=== PATIENT | female | born 1935 | race Caucasian/White ===

== ENCOUNTER 2020-10-24 18:10 | Inpatient (IN) | payer MEDICARE ==
[~2020-10-24] VITALS: Ht 160 cm; Wt 63.6 kg
--- NOTE | 2020-10-24 18:37 | NUR ---
CERTIFIED PROSTHETIST/ORTHOTIST: DR LOOMIS SAW EKG AT 1824. NO CODE CARDIAC PER DR LOOMIS.
--- NOTE | 2020-10-24 18:53 | NUR ---
MD AT BEDSIDE TO ASSESS. PT IN BED WITH NO SIGNS OR SYMPTOMS OF ACUTE DISTRESS NOTED RESPIRATIONS EVEN AND UNLABORED. PT ON WAGON WINDER, SATTING WELL ON ROOM AIR, AT BEDSIDE.
[2020-10-24] MEDS ORDERED: SODIUM CHLORIDE FLUSH 10ML SYR IVF ONE (19:00)
--- NOTE | 2020-10-24 19:09 | NUR ---
Pt to CT. No changes.
[2020-10-24 19:16] LABS: BASOPHILS % (AUTO) 1 % (0-1); EOSINOPHILS % (AUTO) 1 % (1-7); LYMPHOCYTES % (AUTO) 12 % (22-44); MD NO; MEAN CORPUSCULAR HEMOGLOBIN 30.3 pg (27.0-34.8); MEAN CORPUSCULAR HGB CONC 32.7 g/dL (32.4-35.8); MEAN PLATELET VOLUME 8.6 fL (7.4-10.4); MONOCYTES % (AUTO) 8 % (2-9); NEUTROPHILS % (AUTO) 78 % (42-75); PLATELET COUNT 273 x10^3/uL (130-400); RED BLOOD COUNT 4.04 x10^6/uL (3.82-5.3); RED CELL DISTRIBUTION WIDTH 14.1 % (9.6-15.2)
[2020-10-24 19:20] LABS: MICROSCOPIC NOT IND
[2020-10-24 19:26] LABS: ALANINE AMINOTRANSFERASE 28 U/L (12-78); ALBUMIN 3.4 g/dL (3.4-5.0); ANION GAP 6 mmol/L (5-15); CALCIUM 9.4 mg/dL (8.5-10.1); CHLORIDE 118 mmol/L (98-107); CREATININE 2.21 mg/dL (0.55-1.02)
--- NOTE | 2020-10-24 19:30 | NUR ---
pt back from ct no signs or symptoms of acute distress noted respirations even and unlabored. pt on bar porter, satting well on room air with bed rails up bilaterally and at bedside
[2020-10-24 19:31] LABS: ALKALINE PHOSPHATASE 81 U/L (45-117); BILIRUBIN,TOTAL 0.3 mg/dL (0.2-1.0); TROPONIN I < 0.015 ng/mL (0.000-0.045)
[2020-10-24] MEDS ORDERED: ONDANSETRON 2MG/ML, 2ML ONE (19:41)
[2020-10-24] MEDS ORDERED: DEXTROSE 50%, 50ML SYRINGE ONE ×2 (19:48→21:29)
[2020-10-24] MEDS ORDERED: INSULIN SINGLE DOSE, ER ONE (19:49)
[2020-10-24] MEDS ORDERED: CALCIUM CHLORIDE 10%, 10ML SYR ONE (19:52)
[2020-10-24] MEDS ORDERED: INSULIN REGULAR 100 UNITS/ML, 3ML VIAL IVPush ONE (20:00)
[2020-10-24] MEDS ORDERED: ONDANSETRON 2MG/ML, 2ML IVPush ONE (20:00)
[2020-10-24] MEDS ORDERED: SODIUM BICARBONATE 8.4% 150 MEQ in DEXTROSE 5% 1,000 ML IV SCH (20:00)
[2020-10-24] MEDS ORDERED: DEXTROSE 50%, 50ML SYRINGE IVPush ONE ×2 (20:00→22:00)
[2020-10-24] MEDS ORDERED: CALCIUM CHLORIDE 10%, 10ML SYR IVPush ONE (20:00)
[2020-10-24] MEDS ORDERED: SODIUM BICARB 8.4%, 50ML SYRINGE IVPush ONE (20:00)
[2020-10-24] MEDS ORDERED: SODIUM BICARB 8.4%, 50ML SYRINGE ONE (20:09)
[2020-10-24] MEDS ORDERED: SODIUM CHLORIDE FLUSH 10ML SYR IVF PRN (20:30)
--- NOTE | 2020-10-24 20:39 | NUR ---
pt in bed with no signs or symptoms of acute distress noted respirations even and unlabored pt tearful but denies pain, states that shes scared. pt requesting to use bathroom, rn in room to put pt up to bedpan. pt noted to void clear urine, cleaned and returned to position of comfort. pt continues on residential monitor, satting well on room air, with bed rails up bilaterally and call light in hand. at bedside. pt and aware and agreeable with plan of care.
[2020-10-24] MEDS ORDERED: APIX2.5T PO (20:54)
[2020-10-24] MEDS ORDERED: EVOL140P3 SQ (20:54)
[2020-10-24] MEDS ORDERED: LEVO150C4 PO (20:54)
[2020-10-24] MEDS ORDERED: OLME40TA12 PO (20:54)
[2020-10-24] MEDS ORDERED: CELE100C PO (20:54)
[2020-10-24] MEDS ORDERED: NITR50CA11 PO (20:54)
[2020-10-24] MEDS ORDERED: FEBU40TA PO (20:54)
[2020-10-24] MEDS ORDERED: BUDE3CAP2 IH (20:59)
[2020-10-24] MEDS ORDERED: OXYC1TAB14 PO (20:59)
--- NOTE | 2020-10-24 21:00 | NUR ---
hospitalist at bedside to assess. med list provided by pt, updated by this rn as much as possible. with list. pt in bed with no signs or symptoms of acute distress noted, ivf infusing well at left ac, pt on flexible nanny with bed rails up bilaterally and call light within reach.
[2020-10-24] MEDS ORDERED: SODIUM ZIRCONIUM CYCLOSILICATE 5 GM PO ONE (21:30)
[2020-10-24] MEDS ORDERED: LABETALOL 5MG/ML, 20ML IVPush PRN (21:30)
[2020-10-24] MEDS: SODIUM BICARBONATE 8.4% 150 MEQ in DEXTROSE 5% 1,000 ML IV SCH (21:30)
[2020-10-24] MEDS ORDERED: LIDODERM 5% PATCH TD PRN (21:30)
[2020-10-24] MEDS ORDERED: PROMETHAZINE 25 MG/ML, 1ML IM PRN (21:30)
--- NOTE | 2020-10-24 21:37 | NUR ---
rn in room x2 to check fsbs, result of 46. hospitalist aware, ed physician aware, pt given some po orange juice and new order noted for amp of d50. medication given as ordered. pt in bed with no signs or symptoms of acute dsitress noted respirations even and unlabored. pt on court recording monitor with ivf infusing well at left ac.
[2020-10-24] MEDS: APIXABAN 2.5 MG TABLET PO SCH ×2 (21:55→22:12)
--- NOTE | 2020-10-24 22:19 | NUR ---
pt and state pt already took her pm elequis, medication not given but charted. pt in bed with meal tray at bedside, on monitor tech with call light in hand. bed rail up on left for tray on right, pt with no signs or symptoms of acute distress noted, ivf infusing well at left ac.
[2020-10-24 22:34] LABS: FREE T4 (FREE THYROXINE) 1.76 ng/dL (0.76-1.46)
--- NOTE | 2020-10-24 23:15 | NUR ---
pt noted to have frequent request for toileting to void, pt provided pure wick. pt in bed with no signs or symptoms of acute distress noted repsirations even and unlabored. pt on desk monitor with ivf infusing well at left ac, bed rails up bilaterally and call light in hand
[2020-10-25 00:25] VITALS: BP 132/44
[2020-10-25 00:28] VITALS: BP 132/44
[2020-10-25] MEDS: ACETAMINOPHEN 325 MG TABLET PO PRN ×3 (03:57→23:55)
[2020-10-25 04:44] LABS: BASOPHILS % (AUTO) 1 % (0-1); EOSINOPHILS % (AUTO) 5 % (1-7); LYMPHOCYTES % (AUTO) 27 % (22-44); MEAN CORPUSCULAR HEMOGLOBIN 30.3 pg (27.0-34.8); MEAN CORPUSCULAR HGB CONC 33.8 g/dL (32.4-35.8); MEAN PLATELET VOLUME 8.3 fL (7.4-10.4); MONOCYTES % (AUTO) 12 % (2-9); NEUTROPHILS % (AUTO) 55 % (42-75); PLATELET COUNT 237 x10^3/uL (130-400); RED BLOOD COUNT 3.58 x10^6/uL (3.82-5.3); RED CELL DISTRIBUTION WIDTH 14.1 % (9.6-15.2)
[2020-10-25 04:45] LABS: ANION GAP 5 mmol/L (5-15); CALCIUM 9.1 mg/dL (8.5-10.1); CHLORIDE 116 mmol/L (98-107); CREATININE 1.91 mg/dL (0.55-1.02)
[2020-10-25 04:48] LABS: MD NO
[2020-10-25] MEDS: SODIUM BICARBONATE 8.4% 150 MEQ in DEXTROSE 5% 1,000 ML IV SCH ×2 (05:04→16:13)
[2020-10-25] MEDS: HYDROcodone/APAP 5/325 TABLET PO PRN ×2 (06:37→16:16)
[2020-10-25] MEDS: LEVOTHYROXINE 150 MCG TABLET PO SCH (09:02)
[2020-10-25] MEDS: APIXABAN 2.5 MG TABLET PO SCH ×2 (09:02→21:36)
[2020-10-25] MEDS: FEBUXOSTAT 40 MG TABLET PO SCH (09:02)
[2020-10-25 10:28] VITALS: BP 154/77
[2020-10-25 10:55] VITALS: BP 142/74
[2020-10-25 12:29] VITALS: BP 138/72
[2020-10-25 19:08] VITALS: BP 141/62
[2020-10-26 00:16] VITALS: BP 138/54
[2020-10-26] MEDS: SODIUM BICARBONATE 8.4% 150 MEQ in DEXTROSE 5% 1,000 ML IV SCH (01:39)
[2020-10-26 05:26] LABS: BASOPHILS % (AUTO) 1 % (0-1); EOSINOPHILS % (AUTO) 3 % (1-7); LYMPHOCYTES % (AUTO) 18 % (22-44); MEAN CORPUSCULAR HEMOGLOBIN 30.5 pg (27.0-34.8); MEAN CORPUSCULAR HGB CONC 33.5 g/dL (32.4-35.8); MEAN PLATELET VOLUME 8.3 fL (7.4-10.4); MONOCYTES % (AUTO) 11 % (2-9); NEUTROPHILS % (AUTO) 66 % (42-75); PLATELET COUNT 257 x10^3/uL (130-400)
[2020-10-26 05:29] LABS: MD NO
[2020-10-26 05:36] LABS: ANION GAP 6 mmol/L (5-15); CALCIUM 8.2 mg/dL (8.5-10.1); CHLORIDE 107 mmol/L (98-107)
[2020-10-26 05:37] LABS: CREATININE 1.82 mg/dL (0.55-1.02)
[2020-10-26 06:28] VITALS: BP 166/74
[2020-10-26] MEDS: FEBUXOSTAT 40 MG TABLET PO SCH (08:39)
[2020-10-26] MEDS: APIXABAN 2.5 MG TABLET PO SCH ×2 (08:39→21:29)
[2020-10-26] MEDS: LEVOTHYROXINE 150 MCG TABLET PO SCH (08:39)
[2020-10-26] MEDS: ACETAMINOPHEN 325 MG TABLET PO PRN (09:32)
[2020-10-26 12:01] VITALS: BP 95/63
[2020-10-26 13:12] VITALS: BP 153/77
[2020-10-26] MEDS: HYDROcodone/APAP 5/325 TABLET PO PRN (13:19)
[2020-10-26 19:37] VITALS: BP 150/77
[2020-10-26 20:18] LABS: OCCULT BLOOD NEGATIVE (NEGATIVE)
[2020-10-27 00:41] VITALS: BP 141/61
[2020-10-27] MEDS: LEVOTHYROXINE 100 MCG TABLET PO SCH (05:41)
[2020-10-27 06:11] LABS: BASOPHILS % (AUTO) 1 % (0-1); EOSINOPHILS % (AUTO) 5 % (1-7); LYMPHOCYTES % (AUTO) 23 % (22-44); MEAN CORPUSCULAR HEMOGLOBIN 30.2 pg (27.0-34.8); MEAN CORPUSCULAR HGB CONC 33.2 g/dL (32.4-35.8); MONOCYTES % (AUTO) 12 % (2-9); NEUTROPHILS % (AUTO) 58 % (42-75); PLATELET COUNT 235 x10^3/uL (130-400); RED BLOOD COUNT 3.64 x10^6/uL (3.82-5.3)
[2020-10-27 06:12] LABS: CHLORIDE 112 mmol/L (98-107)
[2020-10-27 06:19] LABS: ALANINE AMINOTRANSFERASE 18 U/L (12-78); ALBUMIN 2.6 g/dL (3.4-5.0); ALKALINE PHOSPHATASE 68 U/L (45-117); ANION GAP 5 mmol/L (5-15); BILIRUBIN,TOTAL 0.3 mg/dL (0.2-1.0); CALCIUM 8.4 mg/dL (8.5-10.1); CREATININE 1.52 mg/dL (0.55-1.02); TOTAL PROTEIN 5.4 g/dL (6.4-8.2)
[2020-10-27 06:30] LABS: MD NO
[2020-10-27 06:33] VITALS: BP 157/71
[2020-10-27] MEDS: FEBUXOSTAT 40 MG TABLET PO SCH (08:25)
[2020-10-27] MEDS: APIXABAN 2.5 MG TABLET PO SCH ×2 (08:25→19:52)
[2020-10-27] MEDS ORDERED: AMLODIPINE 5 MG TABLET PO SCH (09:00)
[2020-10-27 12:13] VITALS: BP 149/74
[2020-10-27 12:36] VITALS: BP 131/85
[2020-10-27] MEDS ORDERED: NITROFURANTOIN 50 MG CAPSULE PO SCH (13:00)
[2020-10-27 13:23] LABS: ALANINE AMINOTRANSFERASE 25 U/L (12-78); ALBUMIN 3.1 g/dL (3.4-5.0); CALCIUM 8.8 mg/dL (8.5-10.1); CREATININE 1.71 mg/dL (0.55-1.02)
[2020-10-27 13:25] LABS: ALKALINE PHOSPHATASE 84 U/L (45-117); BILIRUBIN,TOTAL 0.3 mg/dL (0.2-1.0); TOTAL PROTEIN 6.6 g/dL (6.4-8.2)
[2020-10-27] MEDS: METOPROLOL SUCCINATE 50 MG TAB.ER.24H PO SCH (13:33)
[2020-10-27 13:45] LABS: CHLORIDE 110 mmol/L (98-107)
[2020-10-27 13:46] LABS: ANION GAP 8 mmol/L (5-15)
[2020-10-27 18:53] LABS: MICROSCOPIC AUTO
[2020-10-27 19:48] VITALS: BP 147/56
[2020-10-27] MEDS ORDERED: CALCIUM CARBONATE 500 MG TAB.CHEW PO PRN (20:00)
[2020-10-28 00:55] VITALS: BP 136/63
[2020-10-28 05:02] LABS: BASOPHILS % (AUTO) 1 % (0-1); EOSINOPHILS % (AUTO) 3 % (1-7); LYMPHOCYTES % (AUTO) 24 % (22-44); MEAN CORPUSCULAR HEMOGLOBIN 30.3 pg (27.0-34.8); MEAN CORPUSCULAR HGB CONC 33.3 g/dL (32.4-35.8); MEAN PLATELET VOLUME 8.5 fL (7.4-10.4); MONOCYTES % (AUTO) 11 % (2-9); NEUTROPHILS % (AUTO) 61 % (42-75); PLATELET COUNT 273 x10^3/uL (130-400); RED BLOOD COUNT 4.28 x10^6/uL (3.82-5.3); RED CELL DISTRIBUTION WIDTH 13.9 % (9.6-15.2)
[2020-10-28 05:55] LABS: MD NO
[2020-10-28] MEDS: LEVOTHYROXINE 100 MCG TABLET PO SCH (06:04)
[2020-10-28] MEDS: METOPROLOL SUCCINATE 50 MG TAB.ER.24H PO SCH (06:04)
[2020-10-28 07:11] VITALS: BP 172/79
[2020-10-28] MEDS: APIXABAN 2.5 MG TABLET PO SCH (07:44)
[2020-10-28] MEDS: FEBUXOSTAT 40 MG TABLET PO SCH (07:44)
[2020-10-28 07:48] VITALS: BP 147/65
[2020-10-28] MEDS ORDERED: LOSARTAN 25MG TABLET PO SCH (09:00)
[2020-10-28] MEDS ORDERED: METO-93 PO (10:55)
[2020-10-28] MEDS ORDERED: LEVO88TA4 PO (10:55)
[2020-10-28] MEDS ORDERED: MAGN400T36 PO (16:54)
== END 2020-10-28 13:20 | disposition home or self-care (01) | DRG 640 ==
LOC: ED 18:40 → EDIP 21:53 → CCU 23:52 → 4WST 10-25 10:11 → DCLOUNGE 10-28 13:13
PROVIDERS: ADMIT Family Medicine; ATTEND Hospitalist
PROC: 0T9B70Z Drainage of Bladder with Drainage Device, Via Natural or Artificial Opening (ICD-10-PCS; principal; 2020-10-24)
DX: E87.5 Hyperkalemia (principal); N17.0 Acute kidney failure with tubular necrosis; N18.4 Chronic kidney disease, stage 4 (severe); I12.9 Hypertensive chronic kidney disease with stage 1 through stage 4 chronic kidney disease, or unspecified chronic kidney disease; Z66 Do not resuscitate; E87.2 Acidosis; K52.831 Collagenous colitis; D63.1 Anemia in chronic kidney disease; E03.9 Hypothyroidism, unspecified; E53.8 Deficiency of other specified B group vitamins; E78.5 Hyperlipidemia, unspecified; E83.42 Hypomagnesemia; F03.90 Unspecified dementia, unspecified severity, without behavioral disturbance, psychotic disturbance, mood disturbance, and anxiety; G89.29 Other chronic pain; I48.91 Unspecified atrial fibrillation; M10.9 Gout, unspecified; M19.90 Unspecified osteoarthritis, unspecified site; M81.0 Age-related osteoporosis without current pathological fracture; Z79.01 Long term (current) use of anticoagulants; Z79.4 Long term (current) use of insulin; Z87.440 Personal history of urinary (tract) infections; Z90.710 Acquired absence of both cervix and uterus; Z91.013 Allergy to seafood; I69.328 Other speech and language deficits following cerebral infarction; E87.0 Hyperosmolality and hypernatremia
CPT/HCPCS: 36415; 70450; 71045; 76700; 80048; 80053; 81001; 81003; 82272; 82962; 83735; 84100; 84132; 84439; 84443; 84481; 84484; 85025; 87081; 93005; 93306; 93356; 96374; 96375; 99291; G0378; J2405; J7070; J1815